=== PATIENT | male | born 1960 | race Two or more races ===

== ENCOUNTER → 2020-10-19 | Outpatient (CLI) | payer MEDICAID ==
[2020-10-19 09:45] LABS: Urine WBC None Seen /hpf (0 - 3)
[2020-10-19 10:08] LABS: Basophils # (auto) 0.1 10 ^3/uL (0-0.2); Basophils % (auto) 0.9 % (0.0-2.0); Eosinophils # (auto) 0.4 10 ^3/uL (0-0.8); Eosinophils % (auto) 4.9 % (0.0-7.0); Hematocrit 43.9 % (41.0-53.0); Lymphocytes # (auto) 2.1 10 ^3/uL (0.4-5.4); Lymphocytes % (auto) 26.6 % (10.0-50.0); Mean Corpuscular Hemoglobin 32.9 pg (28.0-32.0); Mean Corpuscular Hgb Conc. 34.1 g/dL (32.0-36.0); Mean Corpuscular Volume 96.3 fL (80.0-100.0); Monocytes # (auto) 0.5 10 ^3/uL (0-1.3); Neutrophils # (auto) 4.7 10 ^3/uL (1.6-8.6); Neutrophils % (auto) 60.6 % (37.0-80.0); Nucleated Red Blood Cells % 0.1 %; Platelet Count (auto) 278 10^3/uL (140-450); Red Blood Cells 4.55 10^6/uL (4.5-5.90); Red Cell Distribution Width 13.2 % (11.8-14.3); White Blood Cell 7.7 10^3/uL (4.4-10.8)
[2020-10-19 10:16] LABS: Urine Bacteria NONE SEEN /hpf (None Seen); Urine Blood Negative /uL (Negative); Urine Specific Gravity 1.003 (1.001-1.035)
[2020-10-19 10:20] LABS: INR 0.98 (0.9-1.15); Partial Thromboplastin Time 29.6 sec (23.0-31.2)
[2020-10-19 10:43] LABS: Albumin 3.9 g/dL (3.4-5.0); Potassium 4.3 mmol/L (3.5-5.1)
[2020-10-19 10:46] LABS: BUN/Creatinine Ratio 7.9; Bilirubin, Total 0.3 mg/dL (0.2-1.0); Total Protein 7.1 g/dL (6.4-8.2)
== END | disposition home or self-care (01) ==
LOC: LAB 09:26
PROVIDERS: ATTEND Orthopaedic Surgery Adult Reconstructive Orthopaedic Surgery
DX: Z01.818 Encounter for other preprocedural examination (principal); Z20.822 Contact with and (suspected) exposure to COVID-19
CPT/HCPCS: 36415; 80053; 81001; 85025; 85610; 85730; C9803; U0003

== ENCOUNTER → 2020-11-30 | Outpatient (CLI) | payer MEDICAID ==
[2020-11-30 09:44] LABS: Urine WBC None Seen /hpf (0 - 3)
[2020-11-30 10:18] LABS: Urine Bacteria NONE SEEN /hpf (None Seen); Urine Blood Negative /uL (Negative); Urine Specific Gravity 1.003 (1.001-1.035)
[2020-11-30 10:32] LABS: Basophils # (auto) 0.1 10 ^3/uL (0-0.2); Basophils % (auto) 1.1 % (0.0-2.0); Eosinophils # (auto) 0.3 10 ^3/uL (0-0.8); Eosinophils % (auto) 2.7 % (0.0-7.0); Hematocrit 43.5 % (41.0-53.0); Hemoglobin 14.9 g/dL (13.5-17.5); Lymphocytes # (auto) 2.2 10 ^3/uL (0.4-5.4); Lymphocytes % (auto) 21.8 % (10.0-50.0); Mean Corpuscular Hemoglobin 32.1 pg (28.0-32.0); Mean Corpuscular Hgb Conc. 34.3 g/dL (32.0-36.0); Mean Corpuscular Volume 93.5 fL (80.0-100.0); Monocytes # (auto) 0.7 10 ^3/uL (0-1.3); Monocytes % (auto) 6.8 % (0.0-12.0); Neutrophils # (auto) 6.8 10 ^3/uL (1.6-8.6); Neutrophils % (auto) 67.6 % (37.0-80.0); Nucleated Red Blood Cells % 0.1 %; Red Blood Cells 4.65 10^6/uL (4.5-5.90); Red Cell Distribution Width 13.1 % (11.8-14.3); White Blood Cell 10.1 10^3/uL (4.4-10.8)
[2020-11-30 10:37] LABS: INR 0.97 (0.9-1.15); Partial Thromboplastin Time 30.3 sec (23.0-31.2)
[2020-11-30 11:33] LABS: Potassium 4.2 mmol/L (3.5-5.1)
[2020-11-30 12:11] LABS: BUN/Creatinine Ratio 6.6; Bilirubin, Total 0.6 mg/dL (0.2-1.0); Calcium 9.1 mg/dL (8.5-10.1); Total Protein 7.2 g/dL (6.4-8.2)
== END | disposition home or self-care (01) ==
LOC: LAB 09:42
PROVIDERS: ATTEND Orthopaedic Surgery Sports Medicine
DX: Z01.812 Encounter for preprocedural laboratory examination (principal); Z20.822 Contact with and (suspected) exposure to COVID-19
CPT/HCPCS: 36415; 80053; 81001; 85025; 85610; 85730; C9803; U0003

== ENCOUNTER 2022-01-14 19:12 | Inpatient (IN) | payer MEDICAID ==
[~2022-01-14] VITALS: Ht 175.3 cm; Wt 87.8 kg
[2022-01-14 21:50] LABS: Basophils # (auto) 0.1 10 ^3/uL (0-0.2); Basophils % (auto) 0.5 % (0.0-2.0); Eosinophils # (auto) 0.2 10 ^3/uL (0-0.8); Eosinophils % (auto) 1.9 % (0.0-7.0); Hematocrit 40.6 % (41.0-53.0); Hemoglobin 13.1 g/dL (13.5-17.5); Lymphocytes # (auto) 1.8 10 ^3/uL (0.4-5.4); Lymphocytes % (auto) 16.3 % (10.0-50.0); Mean Corpuscular Hemoglobin 30.2 pg (28.0-32.0); Mean Corpuscular Hgb Conc. 32.2 g/dL (32.0-36.0); Mean Corpuscular Volume 93.8 fL (80.0-100.0); Monocytes # (auto) 0.8 10 ^3/uL (0-1.3); Monocytes % (auto) 7.2 % (0.0-12.0); Neutrophils # (auto) 8.1 10 ^3/uL (1.6-8.6); Neutrophils % (auto) 74.1 % (37.0-80.0); Nucleated Red Blood Cells % 0.1 %; Red Blood Cells 4.33 10^6/uL (4.5-5.90); Red Cell Distribution Width 14.6 % (11.8-14.3); White Blood Cell 10.9 10^3/uL (4.4-10.8)
[2022-01-14 21:55] LABS: Urine Bacteria FEW /hpf (None Seen); Urine Blood Negative /uL (Negative); Urine Hyaline Cast MANY /lpf (0 - 2); Urine Mucus FEW (None Seen); Urine Specific Gravity 1.018 (1.001-1.035); Urine WBC 3 /hpf (0 - 3)
[2022-01-14 22:05] LABS: Albumin 3.9 g/dL (3.4-5.0); BUN/Creatinine Ratio 9.1; Calcium 8.9 mg/dL (8.5-10.1)
[2022-01-14 22:08] LABS: Bilirubin, Total 0.3 mg/dL (0.2-1.0); Total Protein 6.3 g/dL (6.4-8.2)
[2022-01-15] MEDS ORDERED: LORazepam 0.5 MG TAB PO PRN (01:00)
[2022-01-15] MEDS ORDERED: ONDANSETRON HCL 4 MG/2 ML VIAL IV PRN (01:00)
[2022-01-15] MEDS ORDERED: ACETAMINOPHEN 325 MG TAB PO PRN (01:00)
[2022-01-15] MEDS ORDERED: hydrALAZINE HCL 10 MG TAB PO PRN (01:15)
[2022-01-15] MEDS: cefTRIAXone 1GM/50ML D5W 50 ML IV SCH ×2 (02:23→21:54)
[2022-01-15] MEDS: SODIUM CHLORIDE 0.9% 1,000 ML IV SCH ×2 (02:23→17:40)
[2022-01-15] MEDS ORDERED: SODIUM CHLORIDE 0.9% 1,000 ML IV ONE (03:45)
[2022-01-15] MEDS ORDERED: ACETAMINOPHEN 325 MG TAB PO ONE (03:45)
[2022-01-15 05:25] LABS: Basophils # (auto) 0.1 10 ^3/uL (0-0.2); Basophils % (auto) 0.9 % (0.0-2.0); Eosinophils # (auto) 0.3 10 ^3/uL (0-0.8); Eosinophils % (auto) 3.3 % (0.0-7.0); Hematocrit 40.6 % (41.0-53.0); Hemoglobin 13.3 g/dL (13.5-17.5); Lymphocytes % (auto) 24.1 % (10.0-50.0); Mean Corpuscular Hemoglobin 30.2 pg (28.0-32.0); Mean Corpuscular Hgb Conc. 32.8 g/dL (32.0-36.0); Mean Corpuscular Volume 91.9 fL (80.0-100.0); Monocytes # (auto) 0.7 10 ^3/uL (0-1.3); Monocytes % (auto) 8.5 % (0.0-12.0); Neutrophils # (auto) 5.2 10 ^3/uL (1.6-8.6); Neutrophils % (auto) 63.2 % (37.0-80.0); Red Blood Cells 4.41 10^6/uL (4.5-5.90); Red Cell Distribution Width 14.2 % (11.8-14.3); White Blood Cell 8.3 10^3/uL (4.4-10.8)
[2022-01-15 05:38] LABS: Calcium 9.1 mg/dL (8.5-10.1); Potassium 4.5 mmol/L (3.5-5.1)
[2022-01-15 05:41] LABS: BUN/Creatinine Ratio 16.8
[2022-01-15] MEDS ORDERED: ASPirin 81 mg TAB PO ONE (14:15)
[2022-01-15 14:59] LABS: Magnesium 2.4 mg/dL (1.6-2.6)
[2022-01-15] MEDS ORDERED: ATOR20TA50 PO (17:33)
[2022-01-15] MEDS ORDERED: ASPI1TAB20 PO (17:33)
[2022-01-15] MEDS ORDERED: MELO1TAB56 PO (17:33)
[2022-01-15 17:45] VITALS: BP 111/73
[2022-01-15] MEDS: ATORVASTATIN 20 MG TAB PO SCH (18:00)
[2022-01-15 22:55] VITALS: BP 112/58
[2022-01-16] VITALS (7 sets, daily range): BP systolic 99–124; BP diastolic 33–78
[2022-01-16] MEDS: ASPirin 81 mg TAB PO SCH (08:22)
[2022-01-16] MEDS: SODIUM CHLORIDE 0.9% 1,000 ML IV SCH ×2 (10:11→21:57)
[2022-01-16] MEDS: ATORVASTATIN 20 MG TAB PO SCH (17:15)
[2022-01-16] MEDS: cefTRIAXone 1GM/50ML D5W 50 ML IV SCH (21:57)
[2022-01-17 06:06] VITALS: BP 111/65
[2022-01-17] MEDS: ASPirin 81 mg TAB PO SCH (08:00)
[2022-01-17 09:06] VITALS: BP 131/70
[2022-01-17] MEDS: DOCUSATE SOD 100 MG CAP PO PRN ×2 (10:56→20:55)
[2022-01-17 13:30] VITALS: BP 115/67
[2022-01-17 17:00] VITALS: BP 110/69
[2022-01-17] MEDS: SODIUM CHLORIDE 0.9% 1,000 ML IV SCH (17:15)
[2022-01-17] MEDS: ATORVASTATIN 20 MG TAB PO SCH (17:15)
[2022-01-17 22:00] VITALS: BP 142/84
[2022-01-18 05:00] VITALS: BP 115/58
[2022-01-18 08:00] VITALS: BP 101/61
[2022-01-18 09:00] VITALS: BP 152/71
[2022-01-18] MEDS: ASPirin 81 mg TAB PO SCH (11:19)
[2022-01-18] MEDS: DOCUSATE SOD 100 MG CAP PO PRN (11:49)
[2022-01-18] MEDS ORDERED: LACTULOSE 20Gm/30ML SOLN PO ONE (12:00)
[2022-01-18] MEDS: SODIUM CHLORIDE 0.9% 1,000 ML IV SCH (12:20)
[2022-01-18 13:00] VITALS: BP 101/61
[2022-01-18 16:57] VITALS: BP 111/62
[2022-01-18 17:39] VITALS: BP 138/73
== END 2022-01-18 18:40 | disposition home or self-care (01) | DRG 53 ==
LOC: EDUNIT# 19:12 → EDBD 19:12 → ER 19:12 → TELE 01-15 00:55 → TELE-CENTR 01-15 16:32
PROVIDERS: ADMIT Hospitalist; ATTEND Internal Medicine
DX: R56.9 Unspecified convulsions (principal); E78.5 Hyperlipidemia, unspecified; R55 Syncope and collapse; I25.10 Atherosclerotic heart disease of native coronary artery without angina pectoris; R73.03 Prediabetes; Z20.822 Contact with and (suspected) exposure to COVID-19; Z86.73 Personal history of transient ischemic attack (TIA), and cerebral infarction without residual deficits; I10 Essential (primary) hypertension; Z79.82 Long term (current) use of aspirin; Z72.0 Tobacco use; Z71.6 Tobacco abuse counseling
CPT/HCPCS: 36415; 70450; 70551; 71045; 80048; 80053; 80061; 81001; 83036; 83735; 83880; 84443; 84484; 85025; 93005; 93306; 93886; 95819; 96361; 96365; G0378; J0696